=== PATIENT | female | born 1980 | race African-American/Black ===

== ENCOUNTER 2019-09-05 13:10 | Outpatient (CLI) | payer OTHER, SELFPAY ==
--- NOTE | ~2019-09-05 | MM_ITS ---
EXAMINATION: MM diagnostic brenda BI w jeffery HISTORY: Six-month follow-up of probably benign focal mammographic asymmetries of the breasts TECHNIQUE: ML, MLO and CC 3-D tomosynthesis images of both breasts were performed and synthetic 2-D i mages were generated. CAD analysis was submitted and interpreted. COMPARISON: 12/26/2018 bilateral diagnostic digital mammogram and Limited bilateral breast ultrasound 11/27/2018 bilateral digital screening mammogram BREAST PARENCHYMAL COMPOSITION: There are scattered areas of fibroglandular density. FINDINGS: Stable mild fibroglandular asymmetry of the breast. No interval suspicious mass, architectu ral distortion, malignant calcification, skin thickening or retraction of either breast is evident. S cattered bilateral largely punctate benign calcifications. IMPRESSION: 1. No mammographic evidence of malignancy 2. Routine mammographic screening follow-up is recommended. BI-RADS Category 2: Benign finding(s). Reviewed, dictated and finalized at location A.
== END 2019-09-05 13:11 | disposition home or self-care (01) ==
PROVIDERS: PCP Physician Assistant; Visit Provider Obstetrics & Gynecology
DX: R92.8 Other abnormal and inconclusive findings on diagnostic imaging of breast (principal)
CPT/HCPCS: 77062; 77066; G0279

== ENCOUNTER 2020-10-01 15:27 | Outpatient (CLI) | payer OTHER, SELFPAY ==
--- NOTE | ~2020-10-01 | MM_ITS ---
EXAMINATION: MM screening brenda BI w jeffery HISTORY: Screening mammogram TECHNIQUE: Craniocaudal and mediolateral oblique 3-D tomosynthesis images were obtained and synthetic 2-D images were generated. CAD analysis was submitted and interpreted. COMPARISON: 09/01/2019 bilateral diagnostic digital mammography 12/26/2018 bilateral diagnostic digital mammography and Limited bilateral breast ultrasound 11/27/2018 bilateral digital screening mammogram BREAST PARENCHYMAL COMPOSITION: There are scattered areas of fibroglandular density. FINDINGS: Stable fibroglandular asymmetry, likely related to history of bilateral breast reduction paz rgery over 10 years ago. Scattered bilateral benign calcifications. There is no evidence of suspiciou s mass, calcification, or architectural distortion to suggest malignancy in either breast. There has been no suspicious interval change. IMPRESSION: 1. No mammographic evidence of malignancy. 2. Recommend routine screening mammography in one year. BI-RADS Category 2: Benign finding(s). Reviewed, dictated and finalized at location A.
== END 2020-10-01 15:28 | disposition home or self-care (01) ==
LOC: ANHIMG 15:29
PROVIDERS: PCP Physician Assistant; Visit Provider Obstetrics & Gynecology
DX: Z12.31 Encounter for screening mammogram for malignant neoplasm of breast (principal)
CPT/HCPCS: 77063; 77067

== ENCOUNTER → 2021-03-25 15:00 | Outpatient (CLI) | payer OTHER, SELFPAY ==
--- NOTE | ~2021-03-25 | US_ITS ---
EXAMINATION: US pelvic complete w TV DATE: 03/25/2021 15:35 INDICATION: History of uterine leiomyoma TECHNIQUE: Multiple transabdominal and endovaginal sonographic images of the pelvis were obtained. COMPARISON: 11/15/2018 FINDINGS: The uterus measures 11.3 x 8.4 x 9.2 cm. There are multiple uterine fibroids, the largest o f which is a 4.6 cm subserosal fibroid located posteriorly. The endometrial complex measures 13 mm. T he right ovary measures 3.4 x 2.3 x 2.9 cm. The left ovary measures 5.0 x 3.8 x 4.1 cm and contains a 3.0 cm cyst. There is normal vascular flow in the ovaries. There is no free fluid in the pelvis. IMPRESSION: 1. Fibroid uterus. Reviewed, dictated and finalized at location B. NICS TECHNICIAN IMPRESSION: 1. Fibroid uterus.
== END ==
PROVIDERS: Visit Provider Obstetrics & Gynecology
DX: Z86.018 Personal history of other benign neoplasm (principal); D25.9 Leiomyoma of uterus, unspecified
CPT/HCPCS: 76830; 76856

== ENCOUNTER → 2022-01-03 15:25 | Outpatient (CLI) | payer OTHER, SELFPAY ==
--- NOTE | ~2022-01-03 | XR_ITS ---
EXAM: XR knee RT 2V, XR knee LT 2V DATE: 01/03/2022 15:59 HISTORY: M25.561 - Pain in right knee . COMPARISON: None available. FINDINGS: Normal mineralization. No fracture or dislocation. No lytic or blastic lesion. Mild bilate ral medial joint space narrowing. Tricompartmental osteophytosis, moderate in the medial compartment of the right knee. Small left knee joint effusion. Minimal quadriceps enthesopathy on the left. No er osion or periosteal change. Soft tissues within normal limits. IMPRESSION: Tricompartmental bilateral knee osteoarthritis. Reviewed, dictated and finalized at location K. IMPRESSION: Tricompartmental bilateral knee osteoarthritis.
== END ==
PROVIDERS: PCP Physician Assistant; Visit Provider Physician Assistant
DX: M25.562 Pain in left knee (principal); M25.561 Pain in right knee; M17.0 Bilateral primary osteoarthritis of knee
CPT/HCPCS: 73560

== ENCOUNTER → 2022-02-16 07:50 | Outpatient (CLI) | payer OTHER, SELFPAY ==
--- NOTE | ~2022-02-16 | MR_ITS ---
EXAMINATION: MR knee RT wo con DATE: 02/16/2022 08:25 INDICATION: Right knee pain TECHNIQUE: Magnetic resonance imaging (MRI) of the right knee was performed without intravenous contr ast. Sequences included coronal PD-weighted FSE, coronal PD-weighted FS FSE, sagittal T2-weighted FS E, sagittal PD-weighted FS FSE and axial PD weighted fat saturated FSE. COMPARISON: None. FINDINGS: Medial compartment: Medial meniscus is normal. A full-thickness chondral ulceration or tumor including and fissuring bradley g the anterior to central weightbearing medial femoral condyle. There was a large shallow chondral paz rface irregularity along the medial tibial plateau. Lateral compartment: Lateral meniscus is normal. Partial-thickness chondral ulceration and deeper fissuring in place invol ving greater than 50% the cartilage thickness at the anterior weightbearing lateral femoral condyle a nd in the more central aspect of the lateral tibial plateau. Patellofemoral compartment: Partial-thickness chondral ulceration and deeper fissuring. At the patellar apical ridge and thickeni ng of the mucosa was performed, medial and lateral patellar facets where it had measured between . At least on the deeper chondral ulceration at the caudal aspect of the trochlear groove. Ligaments and tendons: Anterior and posterior cruciate ligaments are normal. The medial collateral ligament and fibular omero ateral ligament complex are normal. The extensor mechanism is normal. The visualized medial and later al hamstring tendons as well as the iliotibial band are normal. Fluid: Physiologic amount of fluid in the joint space. No loose osteochondral bodies identified. [place] 's cyst measuring 3.8 x 2.6 x 0.8 cm. Osseous/other: 7 mm lateral patellar subluxation. Bone alignment is otherwise normal. Normal marrow signal. No fract ure or pathologic marrow replacing process. IMPRESSION: 1. Mild tricompartmental osteoarthritis with moderate grade chondromalacia in all 3 compartments. 2. Small River's cyst. Reviewed, dictated and finalized at location A. IMPRESSION: 1. Mild tricompartmental osteoarthritis with moderate grade chondromalacia in a ll 3 compartments. 2. Small River's cyst.
== END ==
PROVIDERS: PCP Physician Assistant; Visit Provider Nurse Practitioner Family
DX: M17.11 Unilateral primary osteoarthritis, right knee (principal); M71.21 Synovial cyst of popliteal space [Baker], right knee
CPT/HCPCS: 73721

== ENCOUNTER → 2022-04-26 13:25 | Outpatient (CLI) | payer OTHER, SELFPAY ==
--- NOTE | ~2022-04-26 | MM_ITS ---
EXAMINATION: MM screening brenda BI w jeffery HISTORY: Screening TECHNIQUE: Craniocaudal and mediolateral oblique 3-D tomosynthesis images were obtained and synthetic 2-D images were generated. CAD analysis was submitted and interpreted. COMPARISON: Comparison to multiple prior studies sequentially, with oldest reviewed study dated 2018. BREAST PARENCHYMAL COMPOSITION: There are scattered areas of fibroglandular density. FINDINGS: Bilateral breast asymmetries are stable. There is no evidence of suspicious mass, calcifica tion, or architectural distortion to suggest malignancy in either breast. There has been no suspiciou s interval change. IMPRESSION: 1. No mammographic evidence of malignancy. 2. Recommend routine screening mammography in one year. BI-RADS Category 1: Negative Reviewed, dictated and finalized at location B. KET WEAVER
== END ==
PROVIDERS: PCP Internal Medicine; Visit Provider Obstetrics & Gynecology
DX: Z12.31 Encounter for screening mammogram for malignant neoplasm of breast (principal)
CPT/HCPCS: 77063; 77067

== ENCOUNTER 2022-10-15 19:02 | Emergency (ER) | payer OTHER, SELFPAY ==
[2022-10-15 19:11] VITALS: BP 142/83; PULSE 99; RESP 16; TEMP 36.9; O2SAT 99
--- NOTE | 2022-10-15 19:15 | ED.CHESTPAIN ---
HPI - Chest Pain General Chief Complaint: Chest Pain Stated Complaint: chest pain above heart Time Seen by Provider: 10/15/22 19:57 Source: patient Mode of arrival: ambulatory Limitations: no limitations History of Present Illness HPI narrative: 42-year-old female history of hypertension presents with concern for chest pain that started about 1 hour ago. She reports the pain was intermittent, was sharp and was worse with deep breathing. She denies dizziness, syncope, shortness of breath, diaphoresis, nausea, back pain. She denies any recent cough or upper respiratory infections. She denies history of asthma or problems breathing. MD complaint: chest pain Related Data Home Medications Medication Instructions Recorded Confirmed cholecalciferol (vitamin D3) 25 1,000 unit PO DAILY 05/20/19 07/26/22 mcg (1,000 unit) capsule melatonin 10 mg capsule 10 mg PO QHS 01/03/22 07/26/22 Valtrex 10/15/22 Allergies Allergy/AdvReac Type Severity Reaction Status Date / Time No Known Allergies Allergy Verified 10/15/22 19:24 Review of Systems Review of Systems: CONSTITUTIONAL: Denies malaise, chills, sweats, or fever. EYES: Denies visual changes, redness, or discharge. ENT: Denies rhinorrhea, congestion CARDIOVASCULAR: Reports chest pain. Denies palpitations or edema. RESPIRATORY: Denies cough or dyspnea. GASTROINTESTINAL: Denies abdominal pain, nausea SKIN: Denies rash or itching. MUSCULOSKELETAL: Denies back pain NEUROLOGIC: Denies numbness, weakness All systems reviewed & are unremarkable except as noted in HPI and below PMFSH Past Medical History Medical History Chondromalacia, right knee HSV (herpes simplex virus) infection HTN (hypertension) Medial meniscus tear Right knee pain Tricompartment osteoarthritis of right knee Vertigo Surgical History Surgical History Hx of bilateral breast reduction surgery Family History Family History Mother Hypertension Patient's mother is in good health Grandparent Hypertension Sibling Family history of diabetes mellitus in first degree relative Father Patient's father is in good health Social History Social History (Updated 07/26/22 @ 07:41 by PATRICIA Banks Smoking status: Never smoker Second hand tobacco smoke exposure: No Alcohol intake: current Alcohol use details: 1-2 drinks per year Substance use: unknown Lack of Transportation: No Lack of Food: Never True Current Housing: I Have Housing Concerned About Future Housing: No Difficulty Paying Gas/Electric Bills: No Difficulty Paying for Meds: No Currently Unemployed: No Education: Master's Degree or Higher Difficulty w/ Childcare or Family Care: No Living arrangements: with family 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 There is no relevant family history pertinent to the presenting complaint Exam Narrative: GENERAL: Well-appearing, well-nourished, and in no acute distress. HEAD: Normocephalic, atraumatic. EYES: PERRLA, sclera clear ENT: Nares clear. Mucous membranes moist. NECK: Supple. CHEST: No respiratory distress. Clear to auscultation. No bony deformities, no asymmetry. Speaks in full sentences. HEART: Regular rate and rhythm. No murmur heard. Normal peripheral pulses. EXTREMITIES: Normal range of motion. No edema. Normal strength and sensation. SKIN: Warm, dry, no visible rash. NEURO: Alert and oriented x3. PSYCH: Normal mood and affect Course Course Emergency Course: Discussed EKG findings with patient. Offered transfer to the emergen
--- NOTE | 2022-10-15 19:25 | ECG_ITS ---
Measurements Intervals Manning Rate: 91 P: 51 OR: 132 QRS: 42 QRSD: 83 T: 42 QT: 337 QTc: 416 Interpretive Statements SINUS RHYTHM LOW QRS VOLTAGE IN PRECORDIAL LEADS [QRS DEFLECTION < 1.0 mV IN CHEST LEADS] OTHERWISE NORMAL ECG NO PREVIOUS ECG AVAILABLE FOR COMPARISON Electronically Signed On 10-16-2022 16:21:13 CDT by Davi Harley M.D.
[2022-10-15] MEDS: MAG HYDROX/AL HYDROX/SIMETH 30 ML UDC 15 ML PO (19:33)
[2022-10-15] MEDS: LIDOCAINE HCL 2% VISC SOLN 15 ML UDC PO (19:33)
--- NOTE | 2022-10-15 19:52 | PC.NURSE ---
stated prior going to rm 1 for ekg had started feeling better with decreased pain with deep breathing.
== END 2022-10-15 20:08 | disposition home or self-care (01) ==
PROVIDERS: Emergency Provider Nurse Practitioner; PCP Physician Assistant
DX: R07.9 Chest pain, unspecified (principal); I10 Essential (primary) hypertension
CPT/HCPCS: 93005; 99213; A9270; G0463

== ENCOUNTER → 2023-04-11 14:53 | Outpatient (CLI) | payer OTHER, SELFPAY ==
--- NOTE | ~2023-04-11 | US_ITS ---
EXAMINATION: US pelvic complete w TV DATE: 04/11/2023 15:25 INDICATION: Enlarged uterus. Heavy periods. Comparison:03/25/2021 TECHNIQUE: Multiple transabdominal and endovaginal sonographic images of the pelvis performed. FINDINGS: The uterus measures 12.8 x 9.2 x 7.5 cm uterus is diffusely heterogeneous and ill-defined m yometrium, consistent with fibroid changes. Largest discrete fibroid measures 5 cm. The endometrial c omplex measures 9 mm. The ovaries are not visualized, likely due to enlarged uterus. There is no free fluid in the pelvis. There are no abnormal masses seen on either side. IMPRESSION: 1. Enlarged fibroid uterus, largest discrete fibroid measuring 5 cm greatest dimension. Reviewed, dictated and finalized at location B. GUARD IMPRESSION: 1. Enlarged fibroid uterus, largest discrete fibroid measuring 5 cm greatest di mension.
== END ==
PROVIDERS: PCP Obstetrics & Gynecology; Visit Provider Obstetrics & Gynecology
DX: N85.2 Hypertrophy of uterus (principal); D25.9 Leiomyoma of uterus, unspecified
CPT/HCPCS: 76830; 76856

== ENCOUNTER 2023-05-22 14:07 | Outpatient (CLI) | payer OTHER, SELFPAY ==
--- NOTE | ~2023-05-22 | MM_ITS ---
EXAMINATION: MM screening brenda BI w jeffery HISTORY: Screening mammogram TECHNIQUE: Craniocaudal and mediolateral oblique 3-D tomosynthesis images were obtained and synthetic 2-D images were generated. CAD analysis was submitted and interpreted. COMPARISON: 04/26/2022, 10/01/2020, 09/05/2019 BREAST PARENCHYMAL COMPOSITION: There are scattered areas of fibroglandular density. FINDINGS: RIGHT BREAST: No suspicious mass, calcification, or architectural distortion are identified to sugges t malignancy. There has been no suspicious interval change. LEFT BREAST: There is architectural distortion and a possible mass in the posterior third of the lowe r, inner breast 10 cm from the nipple. IMPRESSION: 1. Architectural distortion and possible mass of the left breast. 2. Additional mammographic views and possible breast ultrasound are recommended. BI-RADS Category 0: Incomplete: Needs additional imaging evaluation. Reviewed, dictated and finalized at location A. R WEIGHER IMPRESSION: 1. Architectural distortion and possible mass of the left breast. 2. Additional mammographic views and possible breast ultrasound are recommended . BI-RADS Category 0: Incomplete: Needs additional imaging evaluation.
== END 2023-05-22 14:08 | disposition home or self-care (01) ==
LOC: CHSIMG 14:09
PROVIDERS: PCP Obstetrics & Gynecology; Visit Provider Obstetrics & Gynecology
DX: Z12.31 Encounter for screening mammogram for malignant neoplasm of breast (principal)
CPT/HCPCS: 77063; 77067

== ENCOUNTER 2023-06-07 10:11 | Outpatient (CLI) | payer OTHER, SELFPAY ==
--- NOTE | ~2023-06-07 | MMUS_ITS ---
EXAMINATION: MM diagnostic brenda LT w jeffery, US breast LT limited HISTORY: Architectural distortion and possible left breast mass on screening mammogram TECHNIQUE: Additional 3-D tomosynthesis images of the left breast were performed and synthetic 2-D im ages were generated. CAD analysis was submitted and interpreted. High resolution limited left breast ultrasound was performed. COMPARISON: 05/22/2023, 04/26/2022, 10/01/2020 FINDINGS: MAMMOGRAPHIC FINDINGS: There is a 7 mm hypodensity mass with irregular and spiculated margins in the posterior third of the lower inner breast at the 8:00 location, 9 cm from the nipple. There is associated architectural dist ortion. ULTRASOUND: There is a 4 mm round, hypoechoic mass with posterior acoustic shadowing and no internal vascularity at the 9:00 location, 8 cm from the nipple. The margin appears to be somewhat angular and microlobula ron. IMPRESSION: 1. Indeterminate mass of the inner left breast. 2. Ultrasound-guided biopsy is recommended of the finding at the 9:00 location. Correlation of the cl ip mammogram with the diagnostic mammogram is recommended to ensure this corresponds to the mammograp hic finding. If discrepant, follow-up stereotactic left breast biopsy would be recommended. BI-RADS category 4, suspicious findings. Reviewed, dictated and finalized at location A. RTMENT CLINICIAN IMPRESSION: 1. Indeterminate mass of the inner left breast. 2. Ultrasound-guided biopsy is recommended of the finding at the 9:00 location. Correlation of the clip mammogram with the diagnostic mammogram is recommended to ensure this corresponds to the mammographic finding. If discrepant, follow- up stereotactic left breast biopsy would be recommended. BI-RADS category 4, suspicious findings.
== END 2023-06-07 10:12 | disposition home or self-care (01) ==
LOC: CHSIMG 10:12
PROVIDERS: PCP Obstetrics & Gynecology; Visit Provider Obstetrics & Gynecology
DX: R92.8 Other abnormal and inconclusive findings on diagnostic imaging of breast (principal); N63.20 Unspecified lump in the left breast, unspecified quadrant
CPT/HCPCS: 76642; 77061; 77065; G0279